=== PATIENT | female | born 1990 | race Caucasian/White ===

== ENCOUNTER 2017-11-23 20:15 | Inpatient (IN) | payer MEDICAID, OTHER ==
[~2017-11-23] VITALS: Ht 177.8 cm; Wt 135.0 kg
[~2017-11-23 20:15] MED LIST: ONDA8TAB9 PO
[2017-11-23 21:14] LABS: BASOPHILS % (AUTO) 0 % (0-1); EOSINOPHILS # (AUTO) 0.2 X10'3 (0-0.9); HEMATOCRIT 43.2 % (35.0-45.0); HEMOGLOBIN 14.5 g/dl (12.0-16.0); LYMPHOCYTES % (AUTO) 5.2 % (21-51); MEAN CORPUSCULAR HEMOGLOBIN 29.5 PG (27.0-31.0); MEAN CORPUSCULAR HGB CONC 33.6 % (33.0-36.5); MEAN CORPUSCULAR VOLUME 87.7 FL (78-98); MEAN PLATELET VOLUME 8.7 FL (7.4-10.4); MONOCYTES # (AUTO) 0.5 X10'3 (0-0.9); MONOCYTES % (AUTO) 2.7 % (2-12); NEUTROPHILS # (AUTO) 17.5 X10'3 (1.8-7.7); NEUTROPHILS % (AUTO) 91.1 % (42-75); PLATELET COUNT 398 X10'3 (140-440); RED BLOOD COUNT 4.93 X10'6 (4.20-5.60); RED CELL DISTRIBUTION WIDTH 14.6 % (11.5-14.5); WHITE BLOOD COUNT 19.2 X10'3 (4.5-11.0)
[2017-11-23 21:19] LABS: CLARITY,URINE CLEAR (Clear); COLOR,URINE YELLOW (Yellow); GLUCOSE, URINE NEGATIVE (Neg); KETONES,URINE 40 mg/dl (Neg); LEUKOCYTE ESTERASE ,URINE NEGATIVE (Neg); NITRITES, URINE NEGATIVE (Neg); OCCULT BLOOD,URINE NEGATIVE (Neg); PH,URINE 8.5 (4.8-8.0); PROTEIN,URINE TRACE mg/dl (Neg); UA COLLECTION TYPE CLN CATCH MIDSTREAM; UROBILINOGEN,URINE 0.2 E.U/dL (0.2-1.0)
[2017-11-23 21:25] LABS: INR 1.1 INR; PROTHROMBIN TIME 10.9 SECONDS (9.0-12.0)
[2017-11-23 21:28] LABS: BACTERIA,URINE FEW /HPF (Neg); MUCUS STRANDS FEW /LPF (Neg); RBC,URINE 0-2 /HPF (0-2); SQUAMOUS EPITHELIAL CELL,UR FEW /LPF (FEW); WBC,URINE 0-4 /HPF (0-4)
[2017-11-23 21:32] LABS: ALANINE AMINOTRANSFERASE 34 U/L (12-78); ALBUMIN 4.1 G/DL (3.4-5.0); ALKALINE PHOSPHATASE 91 IU/L (46-116); AMYLASE 68 U/L (25-115); ANION GAP 12 (8-16); ASPARTATE AMINO TRANSFERASE 21 U/L (10-37); BILIRUBIN,TOTAL 0.4 MG/DL (0.1-1.0); BLOOD UREA NITROGEN 10 MG/DL (7-18); BUN/CREATININE RATIO 11.1 (6.6-38.0); CALCIUM 9.3 MG/DL (8.5-10.1); CHLORIDE 101 MMOL/L (99-107); GLUCOSE 138 MG/DL (70-104); LIPASE 87 U/L (73-393); POTASSIUM 4.4 MMOL/L (3.5-5.1); SODIUM 139 MMOL/L (135-145); TOTAL CARBON DIOXIDE 26.3 MMOL/L (24-32); TOTAL PROTEIN 8.4 G/DL (6.4-8.2); eGFR 74 ML/MIN
[2017-11-23] MEDS ORDERED: morphine 4 MG/ML inj SYRINge IV ONE (21:50)
[2017-11-23] MEDS ORDERED: ondansetron/PF 4mg/2ml inj IV ONE (21:50)
[2017-11-23] MEDS ORDERED: normal saline 1000ML IV soln IVB ONE (21:50)
[2017-11-23] MEDS ORDERED: piperacillin/tazo 3.375gm/50ml 50 ML IV ONE (23:35)
[2017-11-24] VITALS (18 sets, daily range): BP systolic 104–138; BP diastolic 64–82
[2017-11-24] MEDS ORDERED: NO HOME MEDS (00:20)
[2017-11-24] MEDS ORDERED: mag hydrox/Alum hydrox/simeth 30ml oral suspension PO PRN (00:30)
[2017-11-24] MEDS ORDERED: magnesium hydroxide 30ml (MOM) UD suspension PO PRN (00:30)
[2017-11-24] MEDS ORDERED: acetaminophen 325mg tablet PO PRN ×2 (00:30)
[2017-11-24] MEDS ORDERED: levoFLOXACIN-Levaquin 500mg/D5 100 ML IV SCH (01:00)
[2017-11-24] MEDS: normal saline 1000ml 1,000 ML IV SCH ×3 (01:03→20:26)
[2017-11-24] MEDS: metroNIDAZOLE-Flagyl 500mg/NS 100 ML IV SCH ×2 (02:30→07:52)
[2017-11-24] MEDS: morphine 4 MG/ML inj SYRINge IV PRN ×4 (07:52→22:22)
[2017-11-24] MEDS: ondansetron/PF 4mg/2ml inj IV PRN (11:33)
[2017-11-24] MEDS ORDERED: iohexol 300mg/ml 100ml inj. ONE (12:54)
[2017-11-24] MEDS ORDERED: BUPIVAcaine/PF 2.5 mg/ml (0.25%) 30ml vial ONE (13:51)
[2017-11-24] MEDS ORDERED: ceFAZolin 1000mg inj ONE (13:51)
[2017-11-24] MEDS ORDERED: midazolam 2 mg/2 ml injection ONE (14:15)
[2017-11-24] MEDS ORDERED: sevoflurane 250ml liquid IH ONE (14:15)
[2017-11-24] MEDS ORDERED: propofol inj 20 ML IV ONE ×2 (14:15→15:53)
[2017-11-24] MEDS ORDERED: rocuronium 10mg/ml inj IV ONE ×2 (14:15→14:39)
[2017-11-24] MEDS ORDERED: fentaNYL /PF 50mcg/ml 5ml ampule ONE (14:15)
[2017-11-24] MEDS ORDERED: dexamethasone sod phosphate 4mg/ml inj. ONE (14:53)
[2017-11-24] MEDS ORDERED: ondansetron/PF 4mg/2ml inj ONE (14:53)
[2017-11-24] MEDS ORDERED: fentaNYL/PF 50MCG/1 ML 2ML syringe ONE (15:15)
[2017-11-24] MEDS ORDERED: acetaminophen 1,000mg/100ml IV 100 ML IV ONE (15:33)
[2017-11-24] MEDS ORDERED: neostigmine methylsulfate 1 MG/ML 10ml vial ONE (15:50)
[2017-11-24] MEDS ORDERED: glycopyrrolate 0.2mg/ml inj ONE (15:50)
[2017-11-24] MEDS ORDERED: fentaNYL/PF 50MCG/1 ML 2ML syringe IV PRN (16:30)
[2017-11-24] MEDS ORDERED: ringers solution, lacted 1,000 ML IV SCH (16:30)
[2017-11-24] MEDS ORDERED: HYDROmorphone inj. 0.5 MG/0.5 ML DISP.SYRIN IV PRN (16:30)
[2017-11-24] MEDS ORDERED: proCHLORperazine 10 MG/2 ml inj IV PRN (16:30)
[2017-11-24] MEDS ORDERED: meperidine/PF 50mg/ml syringe IV PRN (16:30)
[2017-11-24] MEDS: piperacillin/tazo 3.375gm/50ml 50 ML IV SCH ×2 (17:22→23:59)
[2017-11-24] MEDS: lactobacillus rhamnosus 10,000 MMU CELLS/CAPSULE PO SCH (20:00)
[2017-11-25] VITALS: BP 117/70
[2017-11-25] MEDS: morphine 4 MG/ML inj SYRINge IV PRN ×3 (02:21→09:28)
[2017-11-25] MEDS: normal saline 1000ml 1,000 ML IV SCH ×2 (03:27→16:21)
[2017-11-25 05:53] LABS: BASOPHILS # (AUTO) 0.1 X10'3 (0-0.2); BASOPHILS % (AUTO) 0.4 % (0-1); EOSINOPHILS # (AUTO) 0.3 X10'3 (0-0.9); EOSINOPHILS % (AUTO) 1.2 % (0-6); HEMOGLOBIN 12.2 g/dl (12.0-16.0); LYMPHOCYTES # (AUTO) 1.3 X10'3 (1.1-4.8); LYMPHOCYTES % (AUTO) 4.9 % (21-51); MEAN CORPUSCULAR HEMOGLOBIN 30.1 PG (27.0-31.0); MEAN CORPUSCULAR HGB CONC 33.9 % (33.0-36.5); MEAN CORPUSCULAR VOLUME 88.6 FL (78-98); MEAN PLATELET VOLUME 8.8 FL (7.4-10.4); MONOCYTES # (AUTO) 2.1 X10'3 (0-0.9); NEUTROPHILS % (AUTO) 85.5 % (42-75); PLATELET COUNT 384 X10'3 (140-440); RED BLOOD COUNT 4.06 X10'6 (4.20-5.60); RED CELL DISTRIBUTION WIDTH 14.8 % (11.5-14.5)
[2017-11-25 05:59] LABS: ALBUMIN 3.2 G/DL (3.4-5.0); ANION GAP 11 (8-16); BLOOD UREA NITROGEN 8 MG/DL (7-18); BUN/CREATININE RATIO 9.4 (6.6-38.0); CALCIUM 8.6 MG/DL (8.5-10.1); CHLORIDE 103 MMOL/L (99-107); CREATININE 0.85 MG/DL (0.40-0.90); GLUCOSE 140 MG/DL (70-104); POTASSIUM 3.9 MMOL/L (3.5-5.1); SODIUM 139 MMOL/L (135-145); TOTAL CARBON DIOXIDE 25.4 MMOL/L (24-32); eGFR 79 ML/MIN
[2017-11-25 06:26] LABS: WHITE BLOOD COUNT 25.8 X10'3 (4.5-11.0)
[2017-11-25 06:54] LABS: LYMPHOCYTES % (MANUAL) 5 % (21-51); MONOCYTES % (MANUAL) 9 % (2-12); NEUTROPHILS % (MANUAL) 86 % (42-75); TOTAL CELLS COUNTED 100
[2017-11-25 06:55] LABS: PLATELET ESTIMATE NORMAL
[2017-11-25] MEDS: lactobacillus rhamnosus 10,000 MMU CELLS/CAPSULE PO SCH ×2 (07:39→19:54)
[2017-11-25] MEDS: piperacillin/tazo 3.375gm/50ml 50 ML IV SCH ×2 (07:41→16:19)
[2017-11-25 09:07] VITALS: BP 124/63
[2017-11-25 11:14] VITALS: BP 135/77
[2017-11-25] MEDS: HYDROcodone/acetaminophen 5mg/325mg tablet PO PRN (11:31)
[2017-11-25 13:53] VITALS: BP 119/78
[2017-11-25] MEDS: ketorolac trometh. 30mg/ml inj. IV PRN (19:55)
[2017-11-25 20:00] VITALS: BP 116/72
[2017-11-26] VITALS: BP 122/65
[2017-11-26] MEDS: piperacillin/tazo 3.375gm/50ml 50 ML IV SCH ×3 (00:08→15:06)
[2017-11-26] MEDS: ketorolac trometh. 30mg/ml inj. IV PRN (03:20)
[2017-11-26] MEDS: normal saline 1000ml 1,000 ML IV SCH ×3 (03:25→22:40)
[2017-11-26 06:14] LABS: BASOPHILS % (AUTO) 0.2 % (0-1); EOSINOPHILS # (AUTO) 0.4 X10'3 (0-0.9); EOSINOPHILS % (AUTO) 2.2 % (0-6); HEMATOCRIT 28.7 % (35.0-45.0); HEMOGLOBIN 9.7 g/dl (12.0-16.0); LYMPHOCYTES # (AUTO) 1.7 X10'3 (1.1-4.8); LYMPHOCYTES % (AUTO) 9.9 % (21-51); MEAN CORPUSCULAR HEMOGLOBIN 29.5 PG (27.0-31.0); MEAN CORPUSCULAR HGB CONC 33.9 % (33.0-36.5); MEAN CORPUSCULAR VOLUME 87.2 FL (78-98); MEAN PLATELET VOLUME 8.4 FL (7.4-10.4); MONOCYTES # (AUTO) 1.7 X10'3 (0-0.9); MONOCYTES % (AUTO) 9.8 % (2-12); NEUTROPHILS # (AUTO) 13.4 X10'3 (1.8-7.7); NEUTROPHILS % (AUTO) 77.9 % (42-75); PLATELET COUNT 278 X10'3 (140-440); RED BLOOD COUNT 3.29 X10'6 (4.20-5.60); WHITE BLOOD COUNT 17.2 X10'3 (4.5-11.0)
[2017-11-26 06:24] LABS: ALBUMIN 2.7 G/DL (3.4-5.0); ANION GAP 9 (8-16); BLOOD UREA NITROGEN 9 MG/DL (7-18); CALCIUM 8.2 MG/DL (8.5-10.1); CHLORIDE 104 MMOL/L (99-107); CREATININE 0.82 MG/DL (0.40-0.90); GLUCOSE 100 MG/DL (70-104); POTASSIUM 3.4 MMOL/L (3.5-5.1); SODIUM 140 MMOL/L (135-145); eGFR 82 ML/MIN
[2017-11-26 07:04] VITALS: BP 117/63
[2017-11-26] MEDS: lactobacillus rhamnosus 10,000 MMU CELLS/CAPSULE PO SCH ×2 (07:30→19:28)
[2017-11-26] MEDS: HYDROcodone/acetaminophen 5mg/325mg tablet PO PRN ×3 (07:30→21:58)
[2017-11-26] MEDS: ondansetron/PF 4mg/2ml inj IV PRN (08:03)
[2017-11-26] MEDS ORDERED: potassium Cl 20 mEq SR tablet PO PRN (09:55)
[2017-11-26] MEDS ORDERED: potassium Cl 40MEQ/NS 500ml 500 ML IV PRN ×2 (09:55)
[2017-11-26] MEDS: potassium Cl 20 mEq SR tablet PO PRN ×3 (11:27→21:58)
[2017-11-26 11:42] VITALS: BP 117/63
[2017-11-26 20:00] VITALS: BP 109/63
[2017-11-27] VITALS: BP 126/68
[2017-11-27] MEDS: piperacillin/tazo 3.375gm/50ml 50 ML IV SCH ×4 (01:32→23:41)
[2017-11-27 05:29] LABS: BASOPHILS # (AUTO) 0.1 X10'3 (0-0.2); BASOPHILS % (AUTO) 0.4 % (0-1); EOSINOPHILS # (AUTO) 0.3 X10'3 (0-0.9); EOSINOPHILS % (AUTO) 2.4 % (0-6); HEMATOCRIT 27.5 % (35.0-45.0); HEMOGLOBIN 9.3 g/dl (12.0-16.0); LYMPHOCYTES % (AUTO) 15.3 % (21-51); MEAN CORPUSCULAR HEMOGLOBIN 29.6 PG (27.0-31.0); MEAN CORPUSCULAR HGB CONC 33.9 % (33.0-36.5); MEAN CORPUSCULAR VOLUME 87.3 FL (78-98); MEAN PLATELET VOLUME 8.5 FL (7.4-10.4); MONOCYTES % (AUTO) 7.8 % (2-12); NEUTROPHILS # (AUTO) 9.7 X10'3 (1.8-7.7); NEUTROPHILS % (AUTO) 74.1 % (42-75); PLATELET COUNT 281 X10'3 (140-440); RED BLOOD COUNT 3.15 X10'6 (4.20-5.60); RED CELL DISTRIBUTION WIDTH 14.8 % (11.5-14.5); WHITE BLOOD COUNT 13.1 X10'3 (4.5-11.0)
[2017-11-27 05:30] LABS: ALBUMIN 2.5 G/DL (3.4-5.0); ANION GAP 10 (8-16); BLOOD UREA NITROGEN 7 MG/DL (7-18); BUN/CREATININE RATIO 10.1 (6.6-38.0); CALCIUM 8.3 MG/DL (8.5-10.1); CHLORIDE 106 MMOL/L (99-107); CREATININE 0.69 MG/DL (0.40-0.90); GLUCOSE 86 MG/DL (70-104); POTASSIUM 3.5 MMOL/L (3.5-5.1); SODIUM 142 MMOL/L (135-145); TOTAL CARBON DIOXIDE 25.9 MMOL/L (24-32); eGFR > 90 ML/MIN
[2017-11-27 07:09] VITALS: BP 135/72
[2017-11-27] MEDS: lactobacillus rhamnosus 10,000 MMU CELLS/CAPSULE PO SCH ×2 (07:37→19:01)
[2017-11-27] MEDS: methylnaltrexone br 12mg/0.6ml inj***SubQ only SQ SCH (07:38)
[2017-11-27] MEDS: HYDROcodone/acetaminophen 5mg/325mg tablet PO PRN ×3 (07:38→23:41)
[2017-11-27] MEDS: normal saline 1000ml 1,000 ML IV SCH ×2 (08:26→14:53)
[2017-11-27 11:00] VITALS: BP 129/72
[2017-11-27 13:53] LABS: HEMOGLOBIN A1C 5.7 % (4.5-6.2)
[2017-11-27 19:00] VITALS: BP 128/69
[2017-11-27] MEDS: ondansetron/PF 4mg/2ml inj IV PRN (23:41)
[2017-11-28] VITALS: BP 115/69
[2017-11-28] MEDS: normal saline 1000ml 1,000 ML IV SCH (04:26)
[2017-11-28 06:42] LABS: BASOPHILS # (AUTO) 0.1 X10'3 (0-0.2); BASOPHILS % (AUTO) 0.6 % (0-1); EOSINOPHILS # (AUTO) 0.6 X10'3 (0-0.9); EOSINOPHILS % (AUTO) 4.5 % (0-6); HEMATOCRIT 27.7 % (35.0-45.0); HEMOGLOBIN 9.3 g/dl (12.0-16.0); LYMPHOCYTES # (AUTO) 2.3 X10'3 (1.1-4.8); LYMPHOCYTES % (AUTO) 18.1 % (21-51); MEAN CORPUSCULAR HEMOGLOBIN 29.7 PG (27.0-31.0); MEAN CORPUSCULAR HGB CONC 33.5 % (33.0-36.5); MEAN CORPUSCULAR VOLUME 88.6 FL (78-98); MEAN PLATELET VOLUME 7.6 FL (7.4-10.4); MONOCYTES % (AUTO) 8.1 % (2-12); NEUTROPHILS # (AUTO) 8.6 X10'3 (1.8-7.7); NEUTROPHILS % (AUTO) 68.7 % (42-75); PLATELET COUNT 344 X10'3 (140-440); RED BLOOD COUNT 3.12 X10'6 (4.20-5.60); RED CELL DISTRIBUTION WIDTH 14.7 % (11.5-14.5); WHITE BLOOD COUNT 12.4 X10'3 (4.5-11.0)
[2017-11-28] MEDS: lactobacillus rhamnosus 10,000 MMU CELLS/CAPSULE PO SCH ×2 (07:00→19:29)
[2017-11-28] MEDS: piperacillin/tazo 3.375gm/50ml 50 ML IV SCH ×3 (07:00→23:32)
[2017-11-28 07:13] LABS: ALBUMIN 2.5 G/DL (3.4-5.0); ANION GAP 8 (8-16); BLOOD UREA NITROGEN 5 MG/DL (7-18); BUN/CREATININE RATIO 6.8 (6.6-38.0); CALCIUM 8.6 MG/DL (8.5-10.1); CHLORIDE 104 MMOL/L (99-107); CREATININE 0.74 MG/DL (0.40-0.90); GLUCOSE 88 MG/DL (70-104); POTASSIUM 3.5 MMOL/L (3.5-5.1); SODIUM 141 MMOL/L (135-145); TOTAL CARBON DIOXIDE 28.9 MMOL/L (24-32); eGFR > 90 ML/MIN
[2017-11-28 07:18] VITALS: BP 123/69
[2017-11-28 12:31] VITALS: BP 122/72
[2017-11-28 18:30] VITALS: BP 119/74
[2017-11-28 23:00] VITALS: BP 103/66
[2017-11-29 05:47] LABS: BASOPHILS % (AUTO) 0.3 % (0-1); EOSINOPHILS # (AUTO) 0.7 X10'3 (0-0.9); EOSINOPHILS % (AUTO) 5.3 % (0-6); HEMATOCRIT 28.8 % (35.0-45.0); HEMOGLOBIN 9.7 g/dl (12.0-16.0); LYMPHOCYTES # (AUTO) 1.9 X10'3 (1.1-4.8); LYMPHOCYTES % (AUTO) 14.3 % (21-51); MEAN CORPUSCULAR HEMOGLOBIN 29.7 PG (27.0-31.0); MEAN CORPUSCULAR HGB CONC 33.7 % (33.0-36.5); MEAN PLATELET VOLUME 7.8 FL (7.4-10.4); MONOCYTES # (AUTO) 1.1 X10'3 (0-0.9); MONOCYTES % (AUTO) 8.1 % (2-12); NEUTROPHILS # (AUTO) 9.6 X10'3 (1.8-7.7); PLATELET COUNT 367 X10'3 (140-440); RED BLOOD COUNT 3.27 X10'6 (4.20-5.60); RED CELL DISTRIBUTION WIDTH 14.5 % (11.5-14.5); WHITE BLOOD COUNT 13.3 X10'3 (4.5-11.0)
[2017-11-29 06:12] LABS: ALBUMIN 2.5 G/DL (3.4-5.0); ANION GAP 12 (8-16); BLOOD UREA NITROGEN 6 MG/DL (7-18); BUN/CREATININE RATIO 8.3 (6.6-38.0); CALCIUM 8.5 MG/DL (8.5-10.1); CHLORIDE 102 MMOL/L (99-107); CREATININE 0.72 MG/DL (0.40-0.90); GLUCOSE 91 MG/DL (70-104); POTASSIUM 3.2 MMOL/L (3.5-5.1); SODIUM 141 MMOL/L (135-145); TOTAL CARBON DIOXIDE 27.2 MMOL/L (24-32); eGFR > 90 ML/MIN
[2017-11-29 07:04] VITALS: BP 114/56
[2017-11-29] MEDS: methylnaltrexone br 12mg/0.6ml inj***SubQ only SQ SCH (08:00)
[2017-11-29] MEDS: piperacillin/tazo 3.375gm/50ml 50 ML IV SCH (09:22)
[2017-11-29] MEDS: lactobacillus rhamnosus 10,000 MMU CELLS/CAPSULE PO SCH (09:22)
[2017-11-29 11:21] VITALS: BP 101/66
== END 2017-11-29 15:30 | disposition home or self-care (01) | DRG 710 ==
LOC: ER 20:16 → ED HOLD 11-24 00:26 → MED 3N 11-24 02:52
PROVIDERS: ADMIT Internal Medicine; ATTEND Legal Medicine
PROC: 0FT44ZZ Resection of Gallbladder, Percutaneous Endoscopic Approach (ICD-10-PCS; principal; 2017-11-24 14:15)
DX: A41.9 Sepsis, unspecified organism (principal); K80.00 Calculus of gallbladder with acute cholecystitis without obstruction; K76.0 Fatty (change of) liver, not elsewhere classified; Z68.41 Body mass index [BMI] 40.0-44.9, adult; E11.65 Type 2 diabetes mellitus with hyperglycemia; K56.7 Ileus, unspecified; D64.9 Anemia, unspecified; K21.9 Gastro-esophageal reflux disease without esophagitis; E66.01 Morbid (severe) obesity due to excess calories; Z79.899 Other long term (current) drug therapy; Z83.3 Family history of diabetes mellitus
CPT/HCPCS: 36415; 74177; 76700; 80048; 80053; 81001; 82150; 82607; 82746; 82948; 83036; 83540; 83550; 83690; 85025; 85610; 87070; 93005; 96361; 96374; 96375; 99285; A6251; A6402; A7000; J0131; J0690; J1100; J1885; J1956; J2250; J2270; J2405; J2543; J2704; J2710; J3010; J3490; J7030; J7120; Q9967

== ENCOUNTER 2020-07-09 16:56 | Emergency (ER) | payer MEDICAID, OTHER ==
[~2020-07-09] VITALS: Ht 175.3 cm; Wt 146.8 kg
[~2020-07-09 16:56] MED LIST changes: +NO HOME MEDS; -ONDA8TAB9 PO
--- NOTE | 2020-07-09 18:06 | NUR ---
PT DENIES LOC, DENIES C-SPINE TENDERNESS. PT HAS LAC TO FOREHEAD/LEFT EYE BROW.
[2020-07-09 18:47] VITALS: BP 133/86
== END 2020-07-09 18:48 | disposition home or self-care (01) ==
LOC: ER 16:57
DX: S63.501A Unspecified sprain of right wrist, initial encounter (principal); S00.212A Abrasion of left eyelid and periocular area, initial encounter; M79.631 Pain in right forearm; Z90.49 Acquired absence of other specified parts of digestive tract; V89.2XXA Person injured in unspecified motor-vehicle accident, traffic, initial encounter; Y93.89 Activity, other specified; Y92.89 Other specified places as the place of occurrence of the external cause; Y99.8 Other external cause status
CPT/HCPCS: 73060; 73090; 73110; 73130; 99284